=== PATIENT | female | born 1935 | race Two or more races ===

== ENCOUNTER 2017-10-21 23:00 | Emergency (ER) | payer OTHER ==
[~2017-10-21] VITALS: Ht 154.9 cm; Wt 72.6 kg
[2017-10-21] MEDS ORDERED: AMLODIPINE BESYL5 MG (23:29)
[2017-10-21] MEDS ORDERED: PLAVIX75 MG (23:30)
[2017-10-21] MEDS ORDERED: VASOTEC10 MG (23:30)
[2017-10-21] MEDS ORDERED: ATORVASTATIN CA10 MG (23:30)
[2017-10-22] MEDS ORDERED: BACTRIM DS TAB1 EACH PO (03:57)
[2017-10-22] MEDS ORDERED: URIN D.S. TABL1 EACH PO (03:57)
== END 2017-10-22 03:07 | disposition home or self-care (01) ==
LOC: ER 23:00
DX: R30.0 Dysuria (principal); N39.0 Urinary tract infection, site not specified; B96.20 Unspecified Escherichia coli [E. coli] as the cause of diseases classified elsewhere

== ENCOUNTER 2020-05-26 11:35 | Emergency (ER) | payer OTHER ==
[~2020-05-26] VITALS: Ht 154.9 cm; Wt 72.6 kg
[~2020-05-26 11:35] MED LIST: AMLODIPINE BESYL5 MG; ATORVASTATIN CA10 MG; BACTRIM DS TAB1 EACH PO; PLAVIX75 MG; URIN D.S. TABL1 EACH PO; VASOTEC10 MG
== END 2020-05-26 14:52 | disposition home or self-care (01) ==
LOC: ER 11:35
DX: I10 Essential (primary) hypertension (principal)

== ENCOUNTER 2020-08-30 04:13 | Emergency (ER) | payer OTHER ==
[~2020-08-30] VITALS: Ht 154.9 cm; Wt 70.3 kg
[2020-08-30] MEDS ORDERED: ACETAMINOPHEN500 M1 (04:37)
== END 2020-08-30 07:18 | disposition home or self-care (01) ==
LOC: ER 04:13
DX: G44.89 Other headache syndrome (principal); I16.0 Hypertensive urgency; I10 Essential (primary) hypertension

== ENCOUNTER 2022-12-13 21:43 | Emergency (ER) | payer OTHER ==
[~2022-12-13] VITALS: Ht 154.9 cm; Wt 63.5 kg
[~2022-12-13 21:43] MED LIST changes: +ACETAMINOPHEN500 M1
== END 2022-12-14 00:12 | disposition home or self-care (01) ==
LOC: ER 21:43
DX: S01.82XA Laceration with foreign body of other part of head, initial encounter (principal); W18.39XA Other fall on same level, initial encounter; Y93.89 Activity, other specified; Y92.018 Other place in single-family (private) house as the place of occurrence of the external cause; S69.82XA Other specified injuries of left wrist, hand and finger(s), initial encounter; Z20.822 Contact with and (suspected) exposure to COVID-19; Z88.8 Allergy status to other drugs, medicaments and biological substances